=== PATIENT | female | born 1985 | race Caucasian/White ===

== ENCOUNTER 2018-04-03 07:12 | Day surgery (SDC) | payer BC ==
[2018-04-03 07:47] VITALS: O2SAT 100
[2018-04-03] MEDS ORDERED: Lactated Ringer's 500 ML IV ONE ×2 (08:46)
[2018-04-03] MEDS ORDERED: Propofol 10 mg/ml Inj (20 ML) ONE ×2 (09:00→09:07)
[2018-04-03 11:08] VITALS: BP 101/59; PULSE 74; RESP 13; TEMP 98.4
== END 2018-04-03 10:05 | disposition home or self-care (01) ==
LOC: C.ENDO 07:12
PROVIDERS: ATTEND Internal Medicine Gastroenterology
DX: R10.13 Epigastric pain (principal); K21.0 Gastro-esophageal reflux disease with esophagitis; K29.80 Duodenitis without bleeding
CPT/HCPCS: 43239; 84703; 88305; 88312; 88313; 88342; J2704; J7120